=== PATIENT | male | born 1955 | race African-American/Black ===

== ENCOUNTER 2017-04-07 19:50 | Emergency (ER) | payer MEDICAID ==
--- NOTE | 2017-04-07 20:09 | ER Document Report ---
ED GI/ - General Mode of Arrival: Ambulatory Information source: Patient TRAVEL OUTSIDE OF THE [place] IN LAST 30 DAYS: No <ARIELLE FARMER - Last Filed: 04/07/17 20:29> <JACKIE BAUM - Last Filed: 04/07/17 23:37> - General Stated Complaint: PENIS SWELLING Time Seen by Provider: 04/07/17 19:59 Notes: Patient is a 61 year old male presenting to the emergency department for penile edema. Patient states that he had his prostate removed on 03/31/2017 and he is discharged on 04/01/2017. This was done by Dr. Heard at [place]. Patient is a poor historian but states his swelling started today. Patient states he does have a PCP but does not know the name of his physician. (ARIELLE FARMER) - Related Data Allergies/Adverse Reactions: codeine Allergy (Verified 04/07/17 21:14) Past Medical History - General Information source: Patient - Social History Smoking Status: Unknown if Ever Smoked Family History: None Patient has suicidal ideation: No Patient has homicidal ideation: No Neurological Medical History: Reports: Hx Seizures Malignancy Medical History: Reports Hx Prostate Cancer Surgical Hx: Negative Past Surgical History: Reports: Hx Genitourinary Surgery - Laparoscopic prostatectomy 03/31/2017 - Immunizations Hx Diphtheria, Pertussis, Tetanus Vaccination: Yes <ARIELLE FARMER - Last Filed: 04/07/17 20:29> Review of Systems - Review of Systems Constitutional: No symptoms reported EENT: No symptoms reported Cardiovascular: No symptoms reported Respiratory: No symptoms reported Gastrointestinal: No symptoms reported Genitourinary: No symptoms reported Male Genitourinary: See HPI Musculoskeletal: No symptoms reported Skin: See HPI Hematologic/Lymphatic: No symptoms reported Neurological/Psychological: No symptoms reported -: Yes All other systems reviewed and negative <ARIELLE FARMER - Last Filed: 04/07/17 20:29> Physical Exam <ARIELLE FARMER - Last Filed: 04/07/17 20:29> <JACKIE BAUM - Last Filed: 04/07/17 23:37> - Vital signs Vitals: Temp Pulse Resp BP Pulse Ox 98.7 F 65 18 159/97 H 100 04/07/17 20:04 04/07/17 20:04 04/07/17 20:04 04/07/17 20:04 04/07/17 20:04 - Notes Notes: GENERAL: Alert, interacts well. No acute distress. HEAD: Normocephalic, atraumatic. EYES: Appear normal. Pupils equal, round, and reactive to light. ENT: Moist mucus membranes, tongue midline. NECK: Full range of motion. Supple. Trachea midline. LUNGS: Clear to auscultation bilaterally, no wheezes, rales, or rhonchi. No respiratory distress. HEART: Regular rate and rhythm. No murmurs, gallops, or rubs. ABDOMEN: Soft, non-tender. Non-distended. Normal bowel sounds. Healing laparoscopic incisions across the mid to lower abdomen consistent with patient' s recent surgery. GENITOURINARY: Penis is grossly edematous until the area just before the glands which has no edema. Area at the glands and extending is distended as well. Lloyd catheter in place which is actively draining. The swelling is soft edema and does not appear to be tender. EXTREMITIES: Moves all 4 extremities spontaneously. Normal strength. No edema. NEUROLOGICAL: Alert and oriented x3. Normal speech. No focal neurological deficits. GCS 15. PSYCH: Normal affect, normal mood. SKIN: Warm, dry, normal turgor. No rashes or lesions noted. (ARIELLE FARMER) Course - Consults [facility] Time consulted: 20:20 <ARIELLE FARMER - Last Filed: 04/07/17 20:29> - Laboratory Result Diagrams: 04/07/17 20:46 04/07/17 20:46 - Diagnostic Test Radiology reviewed: Reports reviewed - Ultrasound shows edema of the penis with no drainable fluid collection. - Consults Dr. Muller Time consulted: 23:25 Consulted provider: follow-up in office - Add Bactrim if he is not already taking it. Call Dr. Heard on Monday for follow-up. He feels the penile edema is most likely related to lymph node dissections done during the surgical procedure. <JACKIE BAUM - Last Filed: 04/07/17 23:37> - Re-evaluation Re-evalutation: 04/07/17 23:35 The patient cannot tell me what medicines he may or may not have been put on. I called the transfer center and they pulled his chart and found that he was sent home with oxycodone and Bactrim DS after his surgical procedure. (JACKIE BAUM) - Vital Signs Vital signs: Temp Pulse Resp BP Pulse Ox 98.4 F 58 L 16 144/83 H 100 04/07/17 23:30 04/07/17 23:30 04/07/17 23:30 04/07/17 23:30 04/07/17 23:30 - Laboratory Laboratory results interpreted by me: 04/07/17 04/07/17 04/07/17 20:46 20:46 22:05 Hgb 11.8 L Hct 35.0 L MCV 78 L MCH 26.4 L Sodium 131.2 L Chloride 96 L Direct Bilirubin 0.7 H Albumin 3.4 L Urine Blood LARGE H Urine Urobilinogen 4.0 H Ur Leukocyte Esterase LARGE H - Consults [facility] Reason for consultation: 04/07/17 20:20 Contacted [facility] to clarify patient's surgical date and other pertinent information. (ARIELLE FARMER) Discharge <ARIELLE FARMER - Last Filed: 04/07/17 20:29> <JACKIE BAUM - Last Filed: 04/07/17 23:37> - Discharge Clinical Impression: Penile swelling Condition: Stable Disposition: HOME, SELF-CARE Additional Instructions: Continue the medications they put you on when you are discharged home after your surgery. Call Dr. Heard Monday morning to schedule a follow-up appointment. Return to the emergency room if any new or worsening symptoms. Scribe Attestation: 04/07/17 22:37 I personally performed the services described in the documentation, reviewed and edited the documentation which was dictated to the scribe in my presence, and it accurately records my words and actions. (JACKIE BAUM) Scribe Documentation - Scribe Written by Maik:: Maik Leary 04/07/2017 20:00 acting as scribe for :: Hayden <ARIELLE FARMER - Last Filed: 04/07/17 20:29>
[2017-04-07 21:05] LABS: ABSOLUTE BASOPHILS # (AUTO) 0.1 10^3/uL (0.0-0.2); ABSOLUTE EOSINOPHILS # (AUTO) 0.3 10^3/uL (0.0-0.6); ABSOLUTE LYMPHOCYTES (AUTO) 1.8 10^3/uL (0.5-4.7); ABSOLUTE MONOCYTES (AUTO) 0.9 10^3/uL (0.1-1.4); ABSOLUTE NEUT (AUTO) 4.7 10^3/uL (1.7-8.2); BASOPHILS % (AUTO) 0.8 % (0-2); EOSINOPHILS % (AUTO) 4.1 % (0-6); HEMOGLOBIN 11.8 g/dL (13.5-17.0); HGB HCT DIFFERENCE 0.4; LYMPHOCYTES % (AUTO) 23.2 % (13-45); MEAN CORPUSCULAR HEMOGLOBIN 26.4 pg (27.0-33.4); MEAN CORPUSCULAR HGB CONC 33.8 g/dL (32.0-36.0); MEAN CORPUSCULAR VOLUME 78 fl (80-97); MONOCYTES % (AUTO) 12.2 % (3-13); RED BLOOD COUNT 4.49 10^6/uL (4.35-5.55); RED CELL DISTRIBUTION WIDTH 13.9 % (11.5-14.0); SEGMENTED NEUTROPHILS % (AUTO) 59.7 % (42-78); WHITE BLOOD COUNT 7.8 10^3/uL (4.0-10.5)
--- NOTE | 2017-04-07 21:17 | RADIOLOGY REPORT (SQ) ---
EXAM DESCRIPTION: U/S EXTREMITY NONVASCULAR LTD COMPLETED DATE/TIME: 04/07/2017 9:09 pm REASON FOR STUDY: penis US/ STS/alcaraz cath, recent prostatectomy COMPARISON: None. TECHNIQUE: Dynamic and static grayscale images acquired of the localized site of clinical concern an d recorded on PACS. Additional selected color Doppler and spectral images recorded. SITE OF CONCERN: PENIS. LIMITATIONS: None. FINDINGS: SKIN AND SUBCUTANEOUS TISSUES: No masses. No fluid collections. Edema. No foreign bodies. DEEP SOFT TISSUES/MUSCLES: No masses. No fluid collections. No edema. VASCULAR: No increased or decreased vascularity. No occlusions. OTHER: No other significant finding. IMPRESSION: EDEMA. NO DRAINABLE FLUID COLLECTION/ABSCESS. TECHNICAL DOCUMENTATION: JOB ID: [id number] [employer]- All Rights Reserved
[2017-04-07 21:37] LABS: ALANINE AMINOTRANSFERASE 41 U/L (21-72); ALBUMIN 3.4 g/dL (3.5-5.0); ALKALINE PHOSPHATASE 70 U/L (38-126); ANION GAP 11 (5-19); ASPARTATE AMINO TRANSFERASE 43 U/L (17-59); BILIRUBIN,DIRECT 0.7 mg/dL (0.0-0.4); BLOOD UREA NITROGEN 11 mg/dL (7-20); CARBON DIOXIDE 24 mmol/L (22-30); CHLORIDE 96 mmol/L (98-107); CREATININE RESULT 1.07 mg/dL (0.52-1.25); GLUCOSE 100 mg/dL (75-110); POTASSIUM 3.9 mmol/L (3.6-5.0); SODIUM 131.2 mmol/L (137-145); TOTAL PROTEIN 7.3 g/dL (6.3-8.2)
[2017-04-07 22:43] LABS: APPEARANCE,URINE SLIGHTLY-CLOUDY; BILIRUBIN,URINE NEGATIVE (NEGATIVE); GLUCOSE, URINE NEGATIVE (NEGATIVE); KETONES,URINE NEGATIVE (NEGATIVE); LEUKOCYTE ESTERASE,URINE LARGE (NEGATIVE); NITRITE,URINE NEGATIVE (NEGATIVE); PROTEIN,URINE NEGATIVE (NEGATIVE); URINE SPECIFIC GRAVITY 1.003
[2017-04-08 00:55] VITALS: BP 182/91
== END 2017-04-08 00:50 | disposition home or self-care (01) ==
LOC: ER 19:50
DX: N48.89 Other specified disorders of penis (principal); Z90.79 Acquired absence of other genital organ(s); Z88.5 Allergy status to narcotic agent; Z85.46 Personal history of malignant neoplasm of prostate
CPT/HCPCS: 36415; 76882; 80053; 81001; 85025; 87086; 87088; 87186; 99285